=== PATIENT | female | born 1980 | race Caucasian/White ===

== ENCOUNTER → 2018-11-03 | Outpatient (REF) | payer OTHER | LOC: M SFHCLERA 20:44 | PROVIDERS: ATTEND Physician Assistant | DX: J20.9 Acute bronchitis, unspecified (principal) ==

== ENCOUNTER → 2021-05-11 | Outpatient (REF) | payer OTHER ==
[2021-05-11 19:52] LABS: ESTRADIOL 148.5 PG/ML; FOLLICLE STIMULATING HORMONE 8.7 mIU/mL; FREE T4 0.92 NG/DL (0.76-1.46); LUTEINIZING HORMONE 20.7 mIU/mL; THYROID STIMULATING HORMONE 1.13 uIU/ML (0.358-3.740)
== END ==
LOC: M LAB REF 16:45
PROVIDERS: ATTEND Obstetrics & Gynecology
DX: N92.1 Excessive and frequent menstruation with irregular cycle (principal)

== ENCOUNTER → 2021-05-15 | Outpatient (REF) | payer OTHER ==
[~2021-05-15] MED LIST: ACET500P3 PO; MIRA3350 PO; PERC5TAB12 PO
[2021-05-15 16:42] LABS: HEMATOCRIT 37.8 % (36.0-47.0); HEMOGLOBIN 12.3 g/dl (12.0-15.5); MEAN CORPUSCULAR HEMOGLOBIN 30.1 pg (27.0-33.0); MEAN CORPUSCULAR HGB CONC 32.5 g/dl (32.0-36.5); MEAN CORPUSCULAR VOLUME 92.4 fl (80.0-96.0); PLATELET COUNT, AUTOMATED 242 10^3/uL (150-450); RED BLOOD COUNT 4.09 10^6/uL (4.00-5.40); WHITE BLOOD COUNT 7.8 10^3/uL (4.0-10.0)
== END ==
LOC: M LAB REF 16:02
PROVIDERS: ATTEND Obstetrics & Gynecology
DX: N92.1 Excessive and frequent menstruation with irregular cycle (principal)

== ENCOUNTER → 2021-06-15 | Outpatient (CLI) | payer OTHER ==
--- NOTE | 2021-06-15 10:17 | REP ---
INDICATION: ENCTR SCREEN MAMMO FOR MALIGNANT NEOPLASM OF BREAST. COMPARISON: None TECHNIQUE: Digital screening mammography was carried out bilaterally in the CC and MLO projections using both 2D and 3D modalities. Today's examination is initial screening examination. By history, the patient has no complaints of a palpable breast abnormality or other significant breast complaints. FINDINGS: The breasts are symmetric in size and shape. Scattered dense heterogenous fibroglandular elements are seen bilaterally. In the right breast there are 2 potential nodular densities 1 is centrally in the retroareolar region on the other is closer to the 6 o'clock position. In the left breast retroareolar region there is a grouping of calcifications which for the most part appear punctate. No other suspicious features are seen in either breast. The [facility] volumetric breast density pattern is b. IMPRESSION: BIRADS/ACR category 0 mammogram. Two possible nodular densities in the right breast as described above for which diagnostic digital DBT spot compression views are recommended in the CC and MLO projections along with ultrasonography if necessary. Calcifications seen in the left breast as described above. Since are no priors comparison diagnostic digital magnified spot compression views in the CC and true lateral projections are recommended. This patient's Tyrer-Cuzick lifetime breast cancer risk assessment score is 16.9%. This mammogram was interpreted with the aid of an FDA-approved computer-aided detection system. The patient states she had a clinical breast exam in April 2021. The patient letter being requested is M0. RECOMMENDATION: As above <Electronically signed by Param Cat > 06/15/21 [id number]
== END ==
LOC: M WHC 09:12
PROVIDERS: ATTEND Obstetrics & Gynecology
DX: Z12.31 Encounter for screening mammogram for malignant neoplasm of breast (principal)

== ENCOUNTER → 2021-07-11 | Outpatient (CLI) | payer OTHER ==
--- NOTE | 2021-07-11 18:25 | REP ---
INDICATION: BILATERAL ADD VIEWS. COMPARISON: Screening mammogram, 06/15/2021. TECHNIQUE: 2D focal compression magnification views of the left breast were obtained in the CC and MLO orientations. 2D and 3D focal compression views of the right breast were obtained in the CC and MLO orientations. Targeted ultrasound of the right breast was obtained. FINDINGS: The [facility] volumetric breast density pattern is C, the breasts are heterogeneously dense, which may obscure small masses. In the retroareolar area of the right breast just lateral to and below the nipple, in the lower outer quadrant, there is an oval, circumscribed, isodense mass measuring 7 mm in diameter. In the retroareolar area of the right breast, above the nipple and at the nipple line, at the 12 o'clock position, there is an bilobed oval circumscribed isodense mass measuring 11 mm in diameter. In the retroareolar area of the left breast there are scattered groups of probably benign calcifications. Right breast ultrasound: Retroareolar, upper outer quadrant, 7 x 6 x 4 mm, simple cyst Retroareolar, lower outer quadrant, 7 x 6 x 5 mm, simple cyst 6 o'clock, 3 cm from the nipple, 6 x 6 x 4 mm, simple cysts IMPRESSION: BIRADS/ACR : 3: Probably benign calcifications in the left breast. This mammogram was interpreted with the aid of an FDA-approved computer-aided detection system. The patient letter being requested is M3. RECOMMENDATION: Six-month follow-up mammographic evaluation of the left breast to include focal compression magnification views in the CC and MLO orientations. <Electronically signed by Ronal Dominguez > 07/11/21 [id number]
--- NOTE | 2021-07-12 07:29 | REP ---
INDICATION: Bilateral incomplete mammogram COMPARISON: Screening mammogram, 06/15/2021 TECHNIQUE: 2D focal compression magnification views of the left breast were obtained in the CC and MLO orientations. 2D and 3D focal compression views of the right breast were obtained in the CC and MLO orientations. Targeted ultrasound of the right breast was obtained. FINDINGS: The [facility] volumetric breast density pattern is C, the breasts are heterogeneously dense, which may obscure small masses. In the retroareolar area of the right breast just lateral to and below the nipple, in the lower outer quadrant, there is an oval, circumscribed, isodense mass measuring 7 mm in diameter. In the retroareolar area of the right breast, above the nipple and at the nipple line, at the 12 o'clock position, there is an bilobed oval circumscribed isodense mass measuring 11 mm in diameter. In the retroareolar area of the left breast there are scattered groups of probably benign calcifications. Right breast ultrasound: Retroareolar, upper outer quadrant, 7 x 6 x 4 mm, simple cyst Retroareolar, lower outer quadrant, 7 x 6 x 5 mm, simple cyst 6 o'clock, 3 cm from the nipple, 6 x 6 x 4 mm, simple cysts IMPRESSION: BIRADS/ACR : 3: Probably benign calcifications in the left breast. This mammogram was interpreted with the aid of an FDA-approved computer-aided detection system. The patient letter being requested is M3. RECOMMENDATION: Six-month follow-up mammographic evaluation of the left breast to include focal compression magnification views in the CC and MLO orientations. <Electronically signed by Ronal Dominguez > 07/12/21 [id number]
== END ==
LOC: M WHC 09:10
PROVIDERS: ATTEND Obstetrics & Gynecology
DX: Z12.31 Encounter for screening mammogram for malignant neoplasm of breast (principal)
CPT/HCPCS: 76642; 77066; G0279

== ENCOUNTER → 2021-08-11 | Outpatient (CLI) | payer OTHER | LOC: M LABSMTC 09:23 | PROVIDERS: ATTEND Anesthesiology | DX: Z01.818 Encounter for other preprocedural examination (principal); Z11.52 Encounter for screening for COVID-19 ==

== ENCOUNTER 2021-08-16 07:50 | Day surgery (SDC) | payer OTHER ==
[~2021-08-16] VITALS: Ht 165.1 cm; Wt 63.0 kg
[~2021-08-16 07:50] MED LIST changes: -ACET500P3 PO; +LIDOCAINE 1% MDV 20ML VIAL SQ PRN; +LR 1,000 ML IV ONE; -MIRA3350 PO; -PERC5TAB12 PO; +ceFAZolin SOD 2 GM in IV 1 EA IV ONE
[2021-08-16] MEDS ORDERED: LIDOCAINE 2% 100MG/5ML SDV (FOR ANES.) As Ordered ONE (08:45)
[2021-08-16] MEDS ORDERED: HYDROmorphone HCL 2MG/ML 1ML VIAL As Ordered ONE (08:45)
[2021-08-16] MEDS ORDERED: ROCURONIUM BROMIDE 50 MG/5 ML VIAL As Ordered ONE (08:45)
[2021-08-16] MEDS ORDERED: fentaNYL 100 MCG/2 ML INJECTION As Ordered ONE (08:45)
[2021-08-16] MEDS ORDERED: dexameTHASONE 4 MG/ML 1ML VIAL (J1100 PER 1MG) As Ordered ONE (08:45)
[2021-08-16] MEDS ORDERED: ONDANSETRON 4MG/2ML VIAL As Ordered ONE (08:45)
[2021-08-16] MEDS ORDERED: MIDAZOLAM INJ 2MG/2ML VIAL (J2250 PER 1MG) As Ordered ONE (08:45)
[2021-08-16] MEDS ORDERED: propofoL 200 MG/20 ML VIAL As Ordered ONE ×2 (08:45→12:17)
[2021-08-16 08:49] LABS: HEMATOCRIT 41.1 % (36.0-47.0); HEMOGLOBIN 13.4 g/dl (12.0-15.5); MEAN CORPUSCULAR HEMOGLOBIN 30.2 pg (27.0-33.0); MEAN CORPUSCULAR HGB CONC 32.6 g/dl (32.0-36.5); MEAN CORPUSCULAR VOLUME 92.6 fl (80.0-96.0); PLATELET COUNT, AUTOMATED 265 10^3/uL (150-450); RED BLOOD COUNT 4.44 10^6/uL (4.00-5.40); WHITE BLOOD COUNT 7.2 10^3/uL (4.0-10.0)
[2021-08-16] MEDS ORDERED: BUPIVACAINE/EPIN 0.25% 30 ML VIAL As Ordered ONE (10:47)
[2021-08-16] MEDS ORDERED: FLUORESCEIN 10% (100MG/ML) 5 ML VIAL As Ordered ONE (10:48)
[2021-08-16] MEDS ORDERED: SUGAMMADEX SODIUM 500 MG/5 ML VIAL (BRIDION) As Ordered ONE (11:21)
[2021-08-16] MEDS ORDERED: KETOROLAC 60MG 2ML VIAL As Ordered ONE (11:21)
[2021-08-16] MEDS ORDERED: LACRILUBE (AKWA TEARS) OPHTH OINT 3.5 GM As Ordered ONE (11:24)
[2021-08-16] MEDS ORDERED: PERC5TAB12 PO (11:26)
[2021-08-16] MEDS ORDERED: METOCLOPRAMIDE INJ 10MG/2ML VIAL (J2765 PER 1) As Ordered ONE (11:37)
[2021-08-16] MEDS ORDERED: PHENYLephrine 500MCG 5ML (100MCG/ML) SYRINGE As Ordered ONE (11:38)
[2021-08-16] MEDS ORDERED: oxyCODONE 5MG TAB PO PRN (13:30)
[2021-08-16] MEDS ORDERED: fentaNYL 100 MCG/2 ML INJECTION IV PRN (13:30)
[2021-08-16] MEDS ORDERED: ONDANSETRON 4MG/2ML VIAL IV PRN (13:30)
[2021-08-16] MEDS ORDERED: LR 1,000 ML IV SCH ×2 (13:30→13:45)
[2021-08-16] MEDS ORDERED: PERCOCET 5MG/325MG TAB PO PRN (13:45)
[2021-08-16] MEDS: MEPERIDINE INJ 25 MG/ML VIAL (J2175) IV PRN ×2 (13:52→14:05)
[2021-08-16 15:40] VITALS: BP 134/82
[2021-08-16] MEDS ORDERED: IBUPROFEN 800 MG TAB PO SCH (18:00)
[2021-08-16] MEDS ORDERED: SIMETHICONE 80MG CHEW TAB PO SCH (18:00)
== END 2021-08-16 16:14 | disposition home or self-care (01) ==
LOC: M SDC 07:50
PROVIDERS: ATTEND Obstetrics & Gynecology
DX: N85.00 Endometrial hyperplasia, unspecified (principal); N88.8 Other specified noninflammatory disorders of cervix uteri; N92.1 Excessive and frequent menstruation with irregular cycle; R10.2 Pelvic and perineal pain; K59.00 Constipation, unspecified
CPT/HCPCS: 36415; 58571; 81025; 85027; 86850; 86900; 86901; 88307; J0690; J1100; J1170; J1885; J2175; J2250; J2370; J2405; J2765; J3010; S2900

== ENCOUNTER 2021-08-28 08:17 | Emergency (ER) | payer OTHER ==
[~2021-08-28] VITALS: Ht 162.6 cm; Wt 63.8 kg
[~2021-08-28 08:17] MED LIST changes: -LIDOCAINE 1% MDV 20ML VIAL SQ PRN; -LR 1,000 ML IV ONE; +PERC5TAB12 PO; -ceFAZolin SOD 2 GM in IV 1 EA IV ONE
[2021-08-28] MEDS ORDERED: ACET500P3 PO (08:40)
[2021-08-28] MEDS ORDERED: MIRA3350 PO (08:40)
[2021-08-28] MEDS ORDERED: IBUPROFEN 600MG TAB PO ONE (09:30)
[2021-08-28 10:41] VITALS: BP 149/81
== END 2021-08-28 10:40 | disposition home or self-care (01) ==
LOC: M ED 08:17
DX: N99.820 Postprocedural hemorrhage of a genitourinary system organ or structure following a genitourinary system procedure (principal); U07.1 COVID-19; J30.2 Other seasonal allergic rhinitis

== ENCOUNTER → 2022-07-12 | Outpatient (CLI) | payer OTHER ==
[~2022-07-12] MED LIST changes: +ACET500P3 PO; +MIRA3350 PO
== END ==
LOC: M WHC 10:34
PROVIDERS: ATTEND Obstetrics & Gynecology
DX: R92.8 Other abnormal and inconclusive findings on diagnostic imaging of breast (principal)

== ENCOUNTER → 2024-05-22 | Outpatient (CLI) | payer OTHER | LOC: M WHC 09:18 | PROVIDERS: ATTEND Obstetrics & Gynecology | DX: Z12.31 Encounter for screening mammogram for malignant neoplasm of breast (principal) ==

== ENCOUNTER → 2025-05-31 | Outpatient (REF) | payer OTHER ==
[2025-05-31 17:52] LABS: APPEARANCE, URINE TURBID (CLEAR); BACTERIA, URINE AUTO NEGATIVE (NEGATIVE); BILIRUBIN, URINE AUTO NEGATIVE (NEGATIVE); BLOOD, URINE BLOOD NEGATIVE (NEGATIVE); GLUCOSE, URINE (UA) AUTO NEGATIVE (NEGATIVE); KETONE, URINE AUTO NEGATIVE (NEGATIVE); LEUKOCYTE ESTERASE, URINE AUTO NEGATIVE (NEGATIVE); MUCUS, URINE LARGE (NEGATIVE); NITRITE, URINE AUTO NEGATIVE (NEGATIVE); PROTEIN, URINE AUTO NEGATIVE (NEGATIVE); RBC, URINE AUTO 0 /HPF (0-3); SPECIFIC GRAVITY URINE AUTO 1.027 (1.002-1.035); SQUAMOUS EPITHELIAL CELL UR AU 3 /HPF (0-6); UROBILINOGEN, URINE AUTO 0.2 mg/dL (0.0-2.0); WBC, URINE AUTO 0 /HPF (0-3)
[2025-05-31 18:25] LABS: BASO # 0.1 10^3/uL (0.0-0.2); BASO % 0.7 % (0.0-1.0); EOS # 0.2 10^3/uL (0.0-0.5); EOS % 2.3 % (0.0-3.0); LYMPH # 1.6 10^3/uL (1.5-5.0); LYMPH % 18.1 % (24.0-44.0); MONO # 0.6 10^3/uL (0.0-0.8); MONO % 6.9 % (2.0-8.0); NEUTROPHILS # 6.2 10^3/uL (1.5-8.5); NEUTROPHILS % 71.8 % (36.0-66.0); PLATELET COUNT, AUTOMATED 243 10^3/uL (150-450)
[2025-05-31 18:42] LABS: ALT/SGPT 10 U/L (7.0-40); AST/SGOT 12 U/L (<34); CALCIUM LEVEL 8.9 MG/DL (8.5-10.1); CARBON DIOXIDE LEVEL 25 MMOL/L (20-31); CHLORIDE LEVEL 106 MMOL/L (98-107); CHOLESTEROL LEVEL 151 MG/DL (<200); CHOLESTEROL RISK RATIO 2.59 (<5); CREATININE FOR GFR 0.72 MG/DL (0.55-1.30); GLOMERULAR FILTRATION RATE > 90.0 (>58); LDL CHOLESTEROL 84.1 MG/DL (<100); NON-HDL-C 92.9 MG/DL; POTASSIUM SERUM 4.0 MMOL/L (3.5-5.1); SODIUM LEVEL 142 MMOL/L (136-145); TRIGLYCERIDES LEVEL 44 MG/DL (<150)
[2025-05-31 18:50] LABS: ESTIMATED AVERAGE GLUCOSE 97.0 MG/DL (60-110)
[2025-05-31 19:14] LABS: HIV 1&2 SCREEN NEGATIVE (NEGATIVE)
[2025-05-31 19:22] LABS: HEPATITIS C VIRUS ABY INDEX 0.02 INDEX (<0.8)
== END ==
LOC: M SFHCLERA 09:59
PROVIDERS: ATTEND Internal Medicine
DX: Z00.01 Encounter for general adult medical examination with abnormal findings (principal); F41.3 Other mixed anxiety disorders

== ENCOUNTER → 2025-07-03 | Outpatient (CLI) | payer OTHER | LOC: M RAD 15:38 | DX: N39.0 Urinary tract infection, site not specified (principal); M54.50 Low back pain, unspecified; R31.9 Hematuria, unspecified ==

== ENCOUNTER → 2025-07-03 | Outpatient (REF) | payer OTHER ==
[2025-07-03 17:50] LABS: APPEARANCE, URINE CLEAR (CLEAR); BACTERIA, URINE AUTO NEGATIVE (NEGATIVE); BILIRUBIN, URINE AUTO NEGATIVE (NEGATIVE); BLOOD, URINE BLOOD NEGATIVE (NEGATIVE); GLUCOSE, URINE (UA) AUTO NEGATIVE (NEGATIVE); KETONE, URINE AUTO NEGATIVE (NEGATIVE); LEUKOCYTE ESTERASE, URINE AUTO NEGATIVE (NEGATIVE); MUCUS, URINE SMALL (NEGATIVE); NITRITE, URINE AUTO NEGATIVE (NEGATIVE); PROTEIN, URINE AUTO NEGATIVE (NEGATIVE); RBC, URINE AUTO 0 /HPF (0-3); SPECIFIC GRAVITY URINE AUTO 1.010 (1.002-1.035); SQUAMOUS EPITHELIAL CELL UR AU 1 /HPF (0-6); UROBILINOGEN, URINE AUTO 0.2 mg/dL (0.0-2.0); WBC, URINE AUTO 0 /HPF (0-3)
== END ==
LOC: M LAB REF 17:20
DX: N39.0 Urinary tract infection, site not specified (principal)